=== PATIENT | female | born 1990 | race Caucasian/White ===

== ENCOUNTER 2021-02-11 00:41 | Emergency (ER) | payer OTHER ==
[~2021-02-11] VITALS: Ht 165.1 cm; Wt 63.5 kg
[2021-02-11] MEDS ORDERED: METFORMIN HCL500 M3 (01:03)
[2021-02-11] MEDS ORDERED: SYNTHROID75 MCG (01:03)
[2021-02-11] MEDS ORDERED: DIPROSONE OINT.15 GM TOP ×2 (02:34→02:35)
[2021-02-11] MEDS ORDERED: CEPHALEXIN500 M1 PO ×2 (02:34→02:35)
[2021-02-11] MEDS ORDERED: MEDROL8 MG PO (02:35)
== END 2021-02-11 02:39 | disposition home or self-care (01) ==
LOC: ER 00:41
DX: S80.862A Insect bite (nonvenomous), left lower leg, initial encounter (principal); S80.861A Insect bite (nonvenomous), right lower leg, initial encounter; W57.XXXA Bitten or stung by nonvenomous insect and other nonvenomous arthropods, initial encounter; Y93.89 Activity, other specified; Y92.832 Beach as the place of occurrence of the external cause; Y99.8 Other external cause status